=== PATIENT | female | born 1960 | race Caucasian/White ===

== ENCOUNTER 2019-08-20 18:27 | Emergency (ER) | payer OTHER ==
[~2019-08-20] VITALS: Ht 152.4 cm; Wt 54.4 kg
[~2019-08-20 18:27] MED LIST: MOTRIN800 MG PO; PEPCID40 MG PO; PLAQUENIL200 MG PO; Synthroid,Levo50 MCG PO; ZIAC 2.5 MG-6.25 MG
[2019-08-20] MEDS ORDERED: AUGMENTIN 875875 MG PO (19:39)
== END 2019-08-20 19:12 | disposition home or self-care (01) ==
LOC: ED 18:27
DX: S51.811A Laceration without foreign body of right forearm, initial encounter (principal); S51.851A Open bite of right forearm, initial encounter; I10 Essential (primary) hypertension; Z79.899 Other long term (current) drug therapy; Z88.8 Allergy status to other drugs, medicaments and biological substances; W54.0XXA Bitten by dog, initial encounter; Y93.89 Activity, other specified; Y92.89 Other specified places as the place of occurrence of the external cause; Y99.8 Other external cause status

== ENCOUNTER 2019-08-27 11:51 | Emergency (ER) | payer OTHER ==
[~2019-08-27] VITALS: Ht 154.9 cm; Wt 56.7 kg
[~2019-08-27 11:51] MED LIST changes: +AUGMENTIN 875875 MG PO
== END 2019-08-27 12:13 | disposition home or self-care (01) ==
LOC: ED 11:51
DX: S51.811D Laceration without foreign body of right forearm, subsequent encounter (principal); Z48.00 Encounter for change or removal of nonsurgical wound dressing; Z79.899 Other long term (current) drug therapy; Z79.2 Long term (current) use of antibiotics; W54.0XXD Bitten by dog, subsequent encounter